=== PATIENT | male | born 1960 | race Caucasian/White ===

== ENCOUNTER 2022-04-19 09:46 | Outpatient (CLI) | payer MEDICARE, BC, SELFPAY | END 2022-04-19 09:47 | disposition home or self-care (01) | LOC: WOUND 09:48 | PROVIDERS: PCP Physician Assistant; Visit Provider Nurse Practitioner Family | DX: M86.372 Chronic multifocal osteomyelitis, left ankle and foot (principal); G90.09 Other idiopathic peripheral autonomic neuropathy; Z86.31 Personal history of diabetic foot ulcer; M86.371 Chronic multifocal osteomyelitis, right ankle and foot | CPT/HCPCS: 97597; 99204 ==